=== PATIENT | male | born 1940 | race Caucasian/White ===

== ENCOUNTER → 2018-09-28 13:21 | Outpatient (CLI) | payer MEDICARE, SELFPAY ==
--- NOTE | 2018-09-28 13:37 | DI.CT.S_ITS ---
PROCEDURE: CT ABDOMEN PELVIS WO/W CON INDICATIONS: PYURIA TECHNIQUE: Optional 5 mm thick noncontrast images acquired from the diaphragm to the symphysis pubis. After the administration of intravenous contrast, 5 mm thick images acquired from the diaphragm to the symphysis pubis after a 10-minute delay. 2 mm thick coronal and sagittal reformats were then performed of the kidneys and ureters. For radiation dose reduction, the following was used: automated exposure control, adjustment of mA and/or kV according to patient size. COMPARISON: None. FINDINGS: Image quality: Excellent. Lung bases: Lung bases are clear. Heart size is normal. Small pericardial effusion. Urinary system: Both kidneys are normal in size, without hydronephrosis. There are a few punctate 1 mm diameter nonobstructing calculi within the superior pole, it interval, an interpolar right kidney. No left nephrolithiasis. There are a few parapelvic left renal cysts. No perinephric fat stranding. There is normal bilateral renal enhancement. Renal calyces appear normal in morphology when filled with contrast. Opacified portions of both ureters demonstrate normal caliber. Urinary bladder is diffusely thick walled and trabeculated. Prostate is enlarged. There is a 14 mm focal low-density focus within the peripheral zone of the prostate posteriorly. Other solid organs: Liver is normal in size and enhancement. Gallbladder is within normal limits. Biliary system is non dilated. Pancreas enhances normally. Spleen is normal in size and enhancement. No adrenal nodules. Peritoneum and bowel: Bowel loops demonstrate normal wall thickness and caliber. No free fluid or air. Nodes and vessels: No retroperitoneal or mesenteric adenopathy by size criteria. Aorta and inferior vena cava are normal in size. Abdominal wall: No ventral hernias. Pelvis: No pathologic free pelvic fluid. No inguinal hernias or adenopathy. Bones: Ill-defined 47 mm low-density focus within the right iliac wing posteriorly. 8mm diameter sclerotic focus within the left superior L3 vertebral body. 10 mm ill-defined sclerotic focus within the left iliac wing. No vertebral body compression fractures. IMPRESSION: 1. Multiple punctate nonobstructing right renal calculi. No left nephrolithiasis. 2. No evidence of renal neoplasm. 3. Urinary bladder trabeculation, suggestive of chronic lateral obstruction. 4. Prostate enlargement and associated focal low-density region within the peripheral zone. Underlying prostate carcinoma may be present. 5. Indeterminate iliac wing sclerotic foci, and left L3 sclerotic focus. These findings could indicate bony metastatic disease. Whole-body bone scan recommended for further assessment. Dictated by: Sandie Rogers M.D. on 09/28/2018 at 14:04 Approved by: Sandie Rogers M.D. on 09/28/2018 at 14:09
== END ==
PROVIDERS: PCP Family Medicine; Visit Provider Family Medicine
DX: N39.0 Urinary tract infection, site not specified (principal); N20.0 Calculus of kidney; N40.0 Benign prostatic hyperplasia without lower urinary tract symptoms
CPT/HCPCS: 74178; Q9967

== ENCOUNTER → 2018-10-31 10:33 | Outpatient (CLI) | payer MEDICARE, SELFPAY ==
--- NOTE | 2018-10-31 | DI.NM.S_ITS ---
PROCEDURE: NM BONE SCAN WHOLE BODY RADIOPHARMACEUTICAL: 22.1 mCi Tc-99m MDP IV. INDICATIONS: pyuria,prostate nodule,lesion TECHNIQUE: Delayed whole-body scintigrams were obtained approximately 3-4 hours after intravenous injection of radiotracer. Anterior and posterior views were acquired from vertex to feet. Additional left and right oblique views of the pelvis were obtained. COMPARISON: [facility], CT, CT ABDOMEN PELVIS WO/W CON, 09/28/2018, 13:41. FINDINGS: Focal faint anterolateral right fifth rib tracer activity. There is pronounced tracer uptake seen involving the left mandible. Bilateral degenerative tracer uptake at the ankle/hindfoot, left greater than right IMPRESSION: Nonspecific tracer uptake involving the right fifth rib. Further assessment with rib series could be obtained as clinically warranted. Left mandibular tracer uptake, with an appearance that is suggestive of dental pathology. Please correlate clinically and with clinical exam findings. Dictated by: Emil Cooper M.D. on 10/31/2018 at 16:33 Approved by: Emil Cooper M.D. on 10/31/2018 at 16:38
== END ==
PROVIDERS: PCP Family Medicine; Visit Provider Family Medicine
DX: N39.0 Urinary tract infection, site not specified (principal); N40.2 Nodular prostate without lower urinary tract symptoms
CPT/HCPCS: 78306; A9503